=== PATIENT | male | born 1950 | race African-American/Black ===

== ENCOUNTER 2021-06-03 11:06 | Inpatient (IN) | payer OTHER, MEDICARE ==
[2021-06-03] VITALS (257 sets, daily range): BP systolic 88–204; BP diastolic 35–98; PULSE 48–54; TEMP 92.7–99; O2SAT 59–100
[~2021-06-03] VITALS: Ht 157.5 cm; Wt 80.9 kg
[2021-06-03 11:22] LABS: HEMATOCRIT 40.5 % (42.0-52.0); HEMOGLOBIN 12.1 g/dl (13.5-18.0); MEAN CELL VOLUME 103 fl (80.0-100.0); MEAN CORPUSCULAR HEMOGLOBIN 31 pg (27-31); MEAN CORPUSCULAR HGB CONC 30 g/dl (33.0-37.0); PLATELET COUNT 125 K/mm3 (130-400); RED BLOOD COUNT 3.93 M/mm3 (4.20-5.60); REDCELL DISTRIBUTION WIDTH-CV 19.3 % (11.5-14.5)
[2021-06-03 11:34] LABS: BAND 4 % (0-10); LYMPHOCYTE 48 % (20.0-51.0); NEUTROPHILS 43 % (42.0-75.2); NUCLEATED RED BLOOD CELL 3 (0-6)
[2021-06-03 11:35] LABS: ANISOCYTOSIS 2+; HYPOCHROMIA 3+; PLATELET ESTIMATE DECREASED (NORMAL)
[2021-06-03 11:39] LABS: ALBUMIN 3.5 gm/dL (3.4-4.8); BILIRUBIN,TOTAL 2.1 mg/dL (0.2-1.2); C-REACTIVE PROTEIN 0.07 mg/dL (0.00-0.50); CALCIUM 8.1 mg/dL (8.4-10.2); CREATININE, serum 1.08 mg/dL (0.72-1.25); POTASSIUM 4.5 mmol/L (3.5-4.5); TOTAL PROTEIN 6.8 gm/dL (6.2-8.1)
[2021-06-03 11:44] LABS: TROPONIN-I 0.026 ng/mL (0.00-0.033)
[2021-06-03 12:17] LABS: COLLECTION METHOD CLEAN CATCH
[2021-06-03 12:25] LABS: MUCOUS Present (NOT PRESENT); PH 6 (5-8); SQUAMOUS EPITHELIAL None Seen /hpf (0-10); URINE APPEARANCE Clear (CLEAR/HAZY); URINE BACTERIA None Seen /hpf (NONE SEEN); URINE BILIRUBIN Negative (NEGATIVE); URINE BLOOD 2+ (NEGATIVE); URINE COLOR Straw (YELLOW); URINE GLUCOSE 1+ (NEGATIVE); URINE KETONE Trace (NEGATIVE); URINE LEUKOCYTE ESTERASE Negative (NEGATIVE); URINE NITRATE Negative (NEGATIVE); URINE PROTEIN(semi-quant) 2+ (NEGATIVE); URINE UROBILINOGEN Negative (NEGATIVE)
[2021-06-03 12:27] LABS: ARTERIAL BLD GAS O2 SATURATION 96.1 % (92-100); ARTERIAL BLD GAS TCO2 CT 16.5; ARTERIAL BLOOD GAS BASE EXCESS -13.8 (-2-2); ARTERIAL BLOOD GAS HCO3 15.1 meq/L (22-26); ARTERIAL BLOOD GAS PCO2 46.4 mmHg (35-45); ARTERIAL BLOOD GAS PO2 101.2 mmHg (80-100)
[2021-06-03 12:28] LABS: ARTERIAL BLOOD GAS pH 7.13 (7.35-7.45)
--- NOTE | 2021-06-03 12:47 | NUR ---
Patient's emergency contact Chanda Burris [phone] calls ICU stating that she received a call about the patient. She is not related to the patient, but states that she is a close friend & "local" personal carer. Minimal update provided about patient & plan of care. Patient currently in ED with room assigned in ICU. Chanda confirmed that patient recently changed from [facility] to [facility] in [place] & he see a [facility] physician. She was unable to share medical history. Stated that she knew patient had a daughter in [place], but that she was not aware of their relationship & that he did not have much contact with her. Patient has a brother Jo Princess [phone]. Explained that we will attempt to contact Jo in order to get daughter's contact information. Chanda understood that she would not be able to make deicions about patient since there is next of kin. This RN left message with Deepakcarlito's phone number provided.
--- NOTE | 2021-06-03 14:04 | NUR ---
Vibration Analyst responded to code in ED for patient who arrived from a new patient appointment with Genetic Counsellor, Dr. Mojica. JEEVAN contacted Dr. Mojica's office to attempt to locate next of kin. SW was advised that patient came in via [facility] bus and has no emergency contact listed as he is a new patient. Dr. Mojica's office advised that patient recently moved to [place] from [place] and sees a provider at the [facility]. SW contacted the [facility] and was advised patient "declined to provide" emergency contact information and they had no advance directives on file for patient. The [facility] also had no information about patient's previous VA provider in [place]. SW contacted [employer] and was advised that patient is a resident of [facility] in . SW and EMT located a contact card for Walker with management at [facility] in patient's wallet. SW contacted Walker (ph#[phone]) who advised they only wagon driver salesperson they had listed was a friend, Chanda Burris (ph#[phone]). SW attempted to contact this number multiple times and a voicemail was not set up. SW contacted [place] [employer] and requested an office locate Chanda Burris and have her reach out to SW. Chanda contacted SW and advised that she is a "caregiver" for patient and his long time friend. Chanda provided contact information for Joshawna Princess (ph#[phone]), patient's brother. SW contacted Camilo who advised Chanda updated him that patient was in the hospital. Camilo advised patient is not and has one daughter, Madelyn who is estranged from patient. Camilo advised he would try to locate Madelyn. JEEVAN then received a phone call from Claudette Sánchez (ph#[phone]), patient's sister who advised patient "put her in charge" of everything for him. JEEVAN inquired about a DPOA-HC and Hiro Viera said she thought patient had maybe done one designating her but she did not have a copy. JEEVAN explained to Hiro Viera that Madelyn is patient's next of kin and would need to be contacted. Hiro Viera advised they have no way to contact Madelyn and that Madelyn has nothing to do with patient or patient's side of the family. SW provided contact information for family to Katerina CONLEY.
[2021-06-03 14:51] LABS: PROTHROMBIN TIME 11.4 SECONDS (9.7-12.8)
[2021-06-03 14:53] LABS: PARTIAL THROMBOPLASTIN TIME 25.9 SECONDS (26.0-37.0)
[2021-06-03 14:55] LABS: ARTERIAL BLD GAS TCO2 CT 17.7; ARTERIAL BLOOD GAS BASE EXCESS -7.9 (-2-2); ARTERIAL BLOOD GAS HCO3 16.8 meq/L (22-26); ARTERIAL BLOOD GAS PCO2 31.7 mmHg (35-45); ARTERIAL BLOOD GAS pH 7.34 (7.35-7.45)
[2021-06-03 15:08] LABS: PHOSPHOROUS 4.3 mg/dL (2.3-4.7)
--- NOTE | 2021-06-03 15:10 | NUR ---
ALONSO SAAVEDRA NOTIFIED OF CRITICAL LABS. STATES SHE WILL REVIEW.
[2021-06-03 15:13] LABS: D-DIMER > 5250.00 ng/mLDDu (200-230)
--- NOTE | 2021-06-03 15:25 | NUR ---
HYPOTHERMIA PROTOCOL STARTED.
--- NOTE | 2021-06-03 15:39 | NUR ---
Electronic Transaction Implementer was contacted by patient's daughter, Madelyn Burks (ph#[phone]). Madelyn advised that she will be leaving for [place] from [place] soon and wants nursing to let patient know she is on her way. JEEVAN explained to Madelyn that she is patient's legal next of kin and decision maker. Madelyn is tearful and verbalized understanding. SW updated patient's RN.
[2021-06-03 16:35] LABS: FIBRINOGEN 234 mg/dL (200-450)
--- NOTE | 2021-06-03 16:44 | NUR ---
1340-PT ARRIVED FROM ER, INTUBATED, ON PROPOFOL, FENTYL, AND EPI DRIP. BESIDE. ANESTHESIA CALLED FOR ARTLINE AND ET TUBE EXCHANGE. ET TUBE CHANGED, ART LINE TO RIGHT RADIAL PLACED, OG PLACED, RECTAL TEMP PROB PLACE, HYPOTHERMIA PROTOCOL STARTED. 1415-BPS IN THE 200'S ON ARTLINE. DR. WHITTEN BEDSIDE AND NOTIFIED. EPI DRIP STOPPED. 1504-PT TAKEN TO CT. 1525-PT BACK FROM CT. 1600- CVP MEASURED AT 16. SEDATION STOPPED AND PT DOES NOT RESPOND TO VOICE, PUPILS ARE FIXED AND DIALATED. PT INTERMITTENTLY JERKS AND EYES POP OPEN. PT POSTURES IN TOWARDS HIMSELF. 1645- BEDSIDE FOR EVALUATION.
--- NOTE | 2021-06-03 16:55 | NUR ---
[facility]3] referral number [id number]. Please call [facility] with plan of care changes or patient loses all reflexes.
--- NOTE | 2021-06-03 17:41 | NUR ---
PT OVERBREATHING THE VENT. SEDATION INCREASED.
--- NOTE | 2021-06-03 17:52 | NUR ---
PT BELONGINGS- A PAIR OF SLIPPERS, SHIRT, SWEATPANTS, CELLPHONE, AND VA ID. IN PATIENT BELONGING BAG IN ROOM WITH PT LABEL ON THEM.
--- NOTE | 2021-06-03 18:06 | NUR ---
PT HR DOWN TO 48, PREVIOUSLY SR IN THE 60'S. HUMAIRA SAAVEDRA NOTIFIED, AND SEDATION DECREASED. WILL CONTINUE TO MONITOR.
[2021-06-03 19:09] LABS: CALCIUM 7.6 mg/dL (8.4-10.2); CREATININE, serum 1.02 mg/dL (0.72-1.25); MAGNESIUM 1.3 mg/dL (1.6-2.6); POTASSIUM 3.6 mmol/L (3.5-4.5)
--- NOTE | 2021-06-03 20:08 | NUR ---
Assessment complete and charted. Adina SAAVEDRA notified of changes with pupils. In room to see patient.
[2021-06-03 20:09] LABS: ARTERIAL BLD GAS O2 SATURATION 99.4 % (92-100); ARTERIAL BLD GAS TCO2 CT 15.3; ARTERIAL BLOOD GAS BASE EXCESS -8.8 (-2-2); ARTERIAL BLOOD GAS HCO3 14.6 meq/L (22-26); ARTERIAL BLOOD GAS PCO2 24.5 mmHg (35-45); ARTERIAL BLOOD GAS pH 7.39 (7.35-7.45)
[2021-06-03 20:46] LABS: INR 1.1 (0.8-3.0); PROTHROMBIN TIME 12.3 SECONDS (9.7-12.8)
[2021-06-03 20:49] LABS: ALBUMIN 3.4 gm/dL (3.4-4.8); BILIRUBIN,TOTAL 2.5 mg/dL (0.2-1.2); CALCIUM 7.7 mg/dL (8.4-10.2); CREATININE, serum 1.01 mg/dL (0.72-1.25); MAGNESIUM 1.3 mg/dL (1.6-2.6); PHOSPHOROUS 3.5 mg/dL (2.3-4.7); POTASSIUM 3.4 mmol/L (3.5-4.5); TOTAL PROTEIN 6.5 gm/dL (6.2-8.1)
[2021-06-03 20:54] LABS: PARTIAL THROMBOPLASTIN TIME 27.7 SECONDS (26.0-37.0)
[2021-06-03 20:59] LABS: TROPONIN-I 0.179 ng/mL (0.00-0.033)
--- NOTE | 2021-06-03 21:20 | NUR ---
Patient has frequent myoclonic jerks present. Adina SAAVEDRA aware and visualized while in room with patient.
[2021-06-03 21:21] LABS: BILIRUBIN,DIRECT 1.1 mg/dL (0.0-0.5)
--- NOTE | 2021-06-03 21:46 | NUR ---
Patient taken to CT from 2037 to 2049. Tolerated well under current sedation.
[2021-06-04] VITALS (315 sets, daily range): BP systolic 115–190; BP diastolic 45–66; PULSE 48–98; TEMP 91.6–98.1; O2SAT 68–100
--- NOTE | 2021-06-04 01:23 | NUR ---
DESATURATING TO 82% ON 50% FIO2. RESPIRATORY NOTIFIED. PATIENT FIO2 INCREASED TO 100% IN MEANTIME
[2021-06-04 02:20] LABS: INR 1.1 (0.8-3.0); PROTHROMBIN TIME 11.8 SECONDS (9.7-12.8)
[2021-06-04 02:23] LABS: PARTIAL THROMBOPLASTIN TIME 28.7 SECONDS (26.0-37.0)
[2021-06-04 02:31] LABS: ALBUMIN 3.4 gm/dL (3.4-4.8); BILIRUBIN,TOTAL 2.4 mg/dL (0.2-1.2); CALCIUM 7.7 mg/dL (8.4-10.2); CREATININE, serum 1.18 mg/dL (0.72-1.25); MAGNESIUM 1.9 mg/dL (1.6-2.6); PHOSPHOROUS 4.3 mg/dL (2.3-4.7); POTASSIUM 4.6 mmol/L (3.5-4.5); TOTAL PROTEIN 6.6 gm/dL (6.2-8.1)
[2021-06-04 02:39] LABS: TROPONIN-I 0.111 ng/mL (0.00-0.033)
[2021-06-04 02:45] LABS: BILIRUBIN,DIRECT 1.1 mg/dL (0.0-0.5)
--- NOTE | 2021-06-04 03:00 | NUR ---
Patient given vecuronium due to over breathing vent and not tolerating vent. Patient tidal volumes decreased and peak pressures increased. All other interventions tried prior to giving vecuronium. After adminstration patient tolerating vent, appropriate tidal volumes and peak pressures.
[2021-06-04 03:48] LABS: ARTERIAL BLD GAS O2 SATURATION 90.1 % (92-100); ARTERIAL BLD GAS TCO2 CT 16.4; ARTERIAL BLOOD GAS BASE EXCESS -10.3 (-2-2); ARTERIAL BLOOD GAS HCO3 15.4 meq/L (22-26); ARTERIAL BLOOD GAS PO2 58.5 mmHg (80-100); ARTERIAL BLOOD GAS pH 7.29 (7.35-7.45)
--- NOTE | 2021-06-04 04:57 | NUR ---
Sedation vacation not preformed due to hypothermic protocol.
[2021-06-04 05:00] LABS: ARTERIAL BLD GAS O2 SATURATION 95.7 % (92-100); ARTERIAL BLD GAS TCO2 CT 17.4; ARTERIAL BLOOD GAS BASE EXCESS -9.1 (-2-2); ARTERIAL BLOOD GAS HCO3 16.4 meq/L (22-26); ARTERIAL BLOOD GAS PCO2 34.3 mmHg (35-45); ARTERIAL BLOOD GAS PO2 75.8 mmHg (80-100)
[2021-06-04 05:27] LABS: HEMOGLOBIN 11.1 g/dl (13.5-18.0); MEAN CORPUSCULAR HEMOGLOBIN 30 pg (27-31); MEAN CORPUSCULAR HGB CONC 32 g/dl (33.0-37.0); MEAN PLATELET VOLUME 11.3 fl (7.4-10.4); PLATELET COUNT 106 K/mm3 (130-400); RED BLOOD COUNT 3.66 M/mm3 (4.20-5.60); REDCELL DISTRIBUTION WIDTH-CV 19.3 % (11.5-14.5)
[2021-06-04 05:50] LABS: HEMATOCRIT 34.8 % (42.0-52.0); MEAN CELL VOLUME 95 fl (80.0-100.0)
[2021-06-04 06:21] LABS: BAND 8 % (0-10); HYPOCHROMIA 1+; LYMPHOCYTE 1 % (20.0-51.0); NEUTROPHILS 91 % (42.0-75.2); NUCLEATED RED BLOOD CELL 1 (0-6)
[2021-06-04 06:22] LABS: TEAR DROP CELLS 1+
[2021-06-04 06:36] LABS: ALBUMIN 3.2 gm/dL (3.4-4.8); BILIRUBIN,TOTAL 2.2 mg/dL (0.2-1.2); CALCIUM 7.9 mg/dL (8.4-10.2); CREATININE, serum 1.07 mg/dL (0.72-1.25); MAGNESIUM 1.7 mg/dL (1.6-2.6); PHOSPHOROUS 3.6 mg/dL (2.3-4.7); POTASSIUM 3.8 mmol/L (3.5-4.5); TOTAL PROTEIN 6.1 gm/dL (6.2-8.1)
--- NOTE | 2021-06-04 07:00 | NUR ---
PT INTUBATED, WITH PROP, FENT, NS, AND BICARB RUNNING. VSS. PT STILL UNDERGOING HYPOTHERMIC PROTOCOL. MARGA RT SETTING UP EEG. WILL CONTIUE TO THUAN.
--- NOTE | 2021-06-04 07:20 | NUR ---
Report given to YAEL Ray
--- NOTE | 2021-06-04 07:30 | NUR ---
PT INTUBATED LESS THAN 24 HOURS AT THIS TIME
--- NOTE | 2021-06-04 07:46 | NUR ---
SEDATION DECREASED FOR EEG TEST.
[2021-06-04 07:47] LABS: PLATELET ESTIMATE DECREASED (NORMAL)
[2021-06-04 08:29] LABS: INR 1.1 (0.8-3.0)
[2021-06-04 08:32] LABS: PARTIAL THROMBOPLASTIN TIME 28.6 SECONDS (26.0-37.0)
--- NOTE | 2021-06-04 08:44 | NUR ---
PT BP ELEVATED WHILE COMPLETING EEG. PT HAS HAVING FREQUENT INTERMITTEN JERKING. SEDATION INCREASED. BEDSIDE. ORDER RECEIVED FROM MAURICIO WELLSED.
[2021-06-04 08:45] LABS: ALBUMIN 3.2 gm/dL (3.4-4.8); BILIRUBIN,TOTAL 2.1 mg/dL (0.2-1.2); CALCIUM 7.5 mg/dL (8.4-10.2); CREATININE, serum 1.18 mg/dL (0.72-1.25); MAGNESIUM 1.6 mg/dL (1.6-2.6); POTASSIUM 3.9 mmol/L (3.5-4.5); TOTAL PROTEIN 6.3 gm/dL (6.2-8.1)
[2021-06-04 09:01] LABS: TROPONIN-I 0.074 ng/mL (0.00-0.033)
--- NOTE | 2021-06-04 09:04 | NUR ---
ADRIÁN ROMAN NOTIFIED OF CRITICAL TROPONIN. ORDER RECEIVED NO NEED TO CALL CRITICAL TROPONINS LONG LEVEL IS DECREASING.
--- NOTE | 2021-06-04 09:31 | NUR ---
PT CHANGED FROM PROPOFOL TO VERSED TO HELP WITH TWITCHING AND JERKING MOVEMENTS, PER .
--- NOTE | 2021-06-04 10:45 | NUR ---
VERSED INCREASED TO HELP WITH PT'S JERKING AND TREMORS.
[2021-06-04 11:05] LABS: ARTERIAL BLD GAS O2 SATURATION 91.2 % (92-100); ARTERIAL BLD GAS TCO2 CT 21.4; ARTERIAL BLOOD GAS BASE EXCESS -7.3 (-2-2); ARTERIAL BLOOD GAS HCO3 19.9 meq/L (22-26); ARTERIAL BLOOD GAS PCO2 47.6 mmHg (35-45); ARTERIAL BLOOD GAS PO2 64.4 mmHg (80-100); ARTERIAL BLOOD GAS pH 7.24 (7.35-7.45)
--- NOTE | 2021-06-04 14:36 | NUR ---
Building Principal made contact with patient's daughter, Madelyn who advised she has two small children, ages 10 and 7. Madelyn advised she is trying to make arrangements with her job in order to leave and plans to leave for [place] on Wednesday. JEEVAN allen RN and Dr. Mojica.
[2021-06-04 14:40] LABS: INR 1.1 (0.8-3.0); PROTHROMBIN TIME 11.9 SECONDS (9.7-12.8)
[2021-06-04 14:43] LABS: PARTIAL THROMBOPLASTIN TIME 28.2 SECONDS (26.0-37.0)
[2021-06-04 14:54] LABS: ALBUMIN 3.1 gm/dL (3.4-4.8); BILIRUBIN,TOTAL 1.9 mg/dL (0.2-1.2); CALCIUM 7.5 mg/dL (8.4-10.2); CREATININE, serum 1.01 mg/dL (0.72-1.25); MAGNESIUM 1.4 mg/dL (1.6-2.6); TOTAL PROTEIN 5.9 gm/dL (6.2-8.1)
--- NOTE | 2021-06-04 15:00 | NUR ---
Pt's daughter Madelyn called to speak with . Informed her was not on the unit, asked if I could relay a messge. Daughter insisted on speaking directly to . Informed her I would let know she would like to speak to him. called and informed.
[2021-06-04 15:02] LABS: TROPONIN-I 0.048 ng/mL (0.00-0.033)
--- NOTE | 2021-06-04 15:25 | NUR ---
RE-WARMING STARTED. WILL CONTINUE TO MONTIOR CLOSELY.
[2021-06-04 16:00] LABS: BILIRUBIN,DIRECT 0.9 mg/dL (0.0-0.5)
--- NOTE | 2021-06-04 16:05 | NUR ---
VERSED INCREASED FOR PT JERKING AND TREMORS.
--- NOTE | 2021-06-04 16:20 | NUR ---
PT HAVING INCREASED JERKS AND TREMORS. PT ALSO HAVING INCREASED PRESSURE ALARMS WITH VENT. SEDATION INCREASED. WILL CONTINUE TO MONITOR.
--- NOTE | 2021-06-04 17:00 | NUR ---
NO SEDATION VACATION AT THIS TIME D/T REWARMING OF PT. PT DOES NOT RESPOND TO VOICE, PT DOES NOT FOLLOW COMMANDS, PT POSTURES INWARD WITH PAIN. PT HAS SLIGHT INTERMITTENT GAG RELEX. WILL CONTINUE TO MONITOR.
[2021-06-04 18:50] LABS: ARTERIAL BLD GAS O2 SATURATION 98.8 % (92-100); ARTERIAL BLD GAS TCO2 CT 21.7; ARTERIAL BLOOD GAS BASE EXCESS -6.1 (-2-2); ARTERIAL BLOOD GAS HCO3 20.3 meq/L (22-26); ARTERIAL BLOOD GAS pH 7.28 (7.35-7.45)
[2021-06-04 18:52] LABS: ARTERIAL BLOOD GAS PO2 137.4 mmHg (80-100)
--- NOTE | 2021-06-04 19:38 | NUR ---
Assessment complete and charted. Patient having frequent myoclonic jerks. Rewarming in process. Remains sedated and intubated.
--- NOTE | 2021-06-04 19:57 | NUR ---
Myoclonic jerking increased in frequency. Spo2 unable to read, readings measuring in 50s when able to read. Respiratory in room. Patient given vecuronium. Readings 100% spo2.
[2021-06-04 20:54] LABS: INR 1.1 (0.8-3.0); PROTHROMBIN TIME 11.7 SECONDS (9.7-12.8)
[2021-06-04 20:56] LABS: PARTIAL THROMBOPLASTIN TIME 26.3 SECONDS (26.0-37.0)
[2021-06-04 21:03] LABS: ALBUMIN 2.9 gm/dL (3.4-4.8); BILIRUBIN,TOTAL 1.8 mg/dL (0.2-1.2); CALCIUM 7.4 mg/dL (8.4-10.2); CREATININE, serum 0.93 mg/dL (0.72-1.25); MAGNESIUM 1.3 mg/dL (1.6-2.6); PHOSPHOROUS 1.7 mg/dL (2.3-4.7); TOTAL PROTEIN 5.4 gm/dL (6.2-8.1)
[2021-06-04 21:07] LABS: POTASSIUM 2.8 mmol/L (3.5-4.5)
[2021-06-04 21:13] LABS: TROPONIN-I 0.045 ng/mL (0.00-0.033)
[2021-06-04 21:24] LABS: BILIRUBIN,DIRECT 0.8 mg/dL (0.0-0.5)
[2021-06-04 21:35] LABS: ARTERIAL BLD GAS O2 SATURATION 98.3 % (92-100); ARTERIAL BLOOD GAS BASE EXCESS -1.1 (-2-2); ARTERIAL BLOOD GAS PCO2 31.3 mmHg (35-45); ARTERIAL BLOOD GAS PO2 99.8 mmHg (80-100); ARTERIAL BLOOD GAS pH 7.47 (7.35-7.45)
[2021-06-04 21:53] LABS: CALCIUM 7.4 mg/dL (8.4-10.2)
[2021-06-04 21:58] LABS: POTASSIUM 2.9 mmol/L (3.5-4.5)
[2021-06-04 22:41] LABS: CREATININE, serum 0.91 mg/dL (0.72-1.25)
--- NOTE | 2021-06-04 23:16 | NUR ---
Patient had reached goal warming temp of 98.6
--- NOTE | 2021-06-04 23:30 | NUR ---
PER DR. STEWART GIVE ANOTHER 2MG ATIVAN IV. GET CEREBREX STARTED AND IF NOT RESOLUTION OF SYMTPOMS IN 30 MINS CALL BACK AND WILL ATTEMPT VIMPAT
[2021-06-05] VITALS (334 sets, daily range): BP systolic 77–137; BP diastolic 36–68; PULSE 75–99; TEMP 96.6–99.9; O2SAT 35–100
[2021-06-05 02:46] LABS: INR 1.1 (0.8-3.0); PROTHROMBIN TIME 12.3 SECONDS (9.7-12.8)
[2021-06-05 02:48] LABS: PARTIAL THROMBOPLASTIN TIME 25.3 SECONDS (26.0-37.0)
[2021-06-05 03:01] LABS: ALBUMIN 2.8 gm/dL (3.4-4.8); BILIRUBIN,TOTAL 1.7 mg/dL (0.2-1.2); CALCIUM 7.4 mg/dL (8.4-10.2); CREATININE, serum 0.9 mg/dL (0.72-1.25); MAGNESIUM 1.7 mg/dL (1.6-2.6); PHOSPHOROUS 2.2 mg/dL (2.3-4.7); POTASSIUM 3.5 mmol/L (3.5-4.5); TOTAL PROTEIN 5.2 gm/dL (6.2-8.1)
[2021-06-05 03:13] LABS: TROPONIN-I 0.055 ng/mL (0.00-0.033)
[2021-06-05 04:00] LABS: BILIRUBIN,DIRECT 0.8 mg/dL (0.0-0.5)
[2021-06-05 04:56] LABS: ARTERIAL BLD GAS O2 SATURATION 98.8 % (92-100); ARTERIAL BLD GAS TCO2 CT 21.3; ARTERIAL BLOOD GAS HCO3 20.3 meq/L (22-26); ARTERIAL BLOOD GAS PCO2 33.7 mmHg (35-45)
[2021-06-05 04:57] LABS: ARTERIAL BLOOD GAS PO2 133.3 mmHg (80-100)
[2021-06-05 06:09] LABS: MEAN CELL VOLUME 93 fl (80.0-100.0); MEAN CORPUSCULAR HGB CONC 33 g/dl (33.0-37.0); MEAN PLATELET VOLUME 10.9 fl (7.4-10.4); PLATELET COUNT 99 K/mm3 (130-400); RED BLOOD COUNT 2.97 M/mm3 (4.20-5.60); REDCELL DISTRIBUTION WIDTH-CV 19.1 % (11.5-14.5)
[2021-06-05 06:11] LABS: HEMATOCRIT 27.7 % (42.0-52.0); HEMOGLOBIN 9.1 g/dl (13.5-18.0); MEAN CORPUSCULAR HEMOGLOBIN 31 pg (27-31)
[2021-06-05 06:19] LABS: ALBUMIN 2.7 gm/dL (3.4-4.8); BILIRUBIN,TOTAL 1.7 mg/dL (0.2-1.2); CALCIUM 7.2 mg/dL (8.4-10.2); CREATININE, serum 0.9 mg/dL (0.72-1.25); MAGNESIUM 2.5 mg/dL (1.6-2.6); PHOSPHOROUS 2.3 mg/dL (2.3-4.7); POTASSIUM 4.6 mmol/L (3.5-4.5); TOTAL PROTEIN 5.1 gm/dL (6.2-8.1)
[2021-06-05 06:28] LABS: ARTERIAL BLD GAS O2 SATURATION 96.2 % (92-100); ARTERIAL BLD GAS TCO2 CT 22.1; ARTERIAL BLOOD GAS BASE EXCESS -5.1 (-2-2); ARTERIAL BLOOD GAS HCO3 20.8 meq/L (22-26); ARTERIAL BLOOD GAS PCO2 42.2 mmHg (35-45); ARTERIAL BLOOD GAS PO2 88.5 mmHg (80-100); ARTERIAL BLOOD GAS pH 7.31 (7.35-7.45)
[2021-06-05 06:54] LABS: ANISOCYTOSIS 2+; BAND 12 % (0-10); LYMPHOCYTE 3 % (20.0-51.0); NEUTROPHILS 82 % (42.0-75.2); NUCLEATED RED BLOOD CELL 2 (0-6); PLATELET ESTIMATE NORMAL (NORMAL)
[2021-06-05 06:55] LABS: HYPOCHROMIA 3+
--- NOTE | 2021-06-05 07:00 | NUR ---
Pt is intubated and rewarmed. Pt appear to be having continous seizure like motions. Pt having high peak pressures on the vent. Ekg montioring is showing alot of artifact and artline difficult to read d/t tremors. Will continue to montior closely. 0800- bedside to evaluate.
--- NOTE | 2021-06-05 07:14 | NUR ---
REPORT GIVEN TO YAEL IYER
--- NOTE | 2021-06-05 08:16 | NUR ---
Versed adjusted to help with seizure/tremors. Levophed adjusted per artline blood pressures.
--- NOTE | 2021-06-05 08:18 | NUR ---
PT NOT APPLICABLE FOR WEANING AT THIS TIME
--- NOTE | 2021-06-05 10:02 | NUR ---
LEVO TITRATED FOR ARTLINE BP. PROPOFOL ADDED AND INCREASED TO HELP WITH SEDATION AND TREMORS/JERKING.
--- NOTE | 2021-06-05 11:02 | NUR ---
CALLING DAUGHTER HEATHER WITH UPDATES.
[2021-06-05 13:19] LABS: ARTERIAL BLD GAS O2 SATURATION 99.3 % (92-100); ARTERIAL BLD GAS TCO2 CT 20.4; ARTERIAL BLOOD GAS HCO3 19.8 meq/L (22-26); ARTERIAL BLOOD GAS PCO2 21.7 mmHg (35-45); ARTERIAL BLOOD GAS PO2 156.7 mmHg (80-100); ARTERIAL BLOOD GAS pH 7.58 (7.35-7.45)
--- NOTE | 2021-06-05 13:46 | NUR ---
Initial visit; Patient visually unaware that Mophead Sewer offered prayer for him.
--- NOTE | 2021-06-05 14:04 | NUR ---
[facility]G RESULTS CALLED TO BY RT. ORDERS RECEIVED TO CHANGE VENT SETTINGS AND DC BICARB DRIP.
--- NOTE | 2021-06-05 15:18 | NUR ---
RT NOT AVAIL AT THIS TIME
--- NOTE | 2021-06-05 16:49 | NUR ---
SEDATION VACATION DONE EARLIER IN THE SHIFT FOR NEURO ASSESSMENT. PT DOES NOT RESPOND TO VOICE OR PAIN. PT DOES NOT FOLLOW COMMANDS. PT DOES NOT HAVE A GAG OR CORNEA REFLEX. PT'S PUPILS UNEQUAL AND NON REACTIVE. PT'S CLONIC JERKS, TREMORS, BP, AND PEAK PRESSURES INCREASE WHEN SEDATION IS DECREASED. WILL CONTINUE TO MONITOR.
[2021-06-05 21:24] LABS: ARTERIAL BLD GAS O2 SATURATION 98.3 % (92-100); ARTERIAL BLD GAS TCO2 CT 23.3; ARTERIAL BLOOD GAS BASE EXCESS -0.9 (-2-2); ARTERIAL BLOOD GAS HCO3 22.3 meq/L (22-26); ARTERIAL BLOOD GAS PCO2 31.7 mmHg (35-45); ARTERIAL BLOOD GAS PO2 115.3 mmHg (80-100); ARTERIAL BLOOD GAS pH 7.47 (7.35-7.45)
[2021-06-06] VITALS (576 sets, daily range): BP systolic 116–156; BP diastolic 57–83; PULSE 77–89; TEMP 98.2–99; O2SAT 79–100
[2021-06-06 03:39] LABS: ARTERIAL BLD GAS TCO2 CT 22.9; ARTERIAL BLOOD GAS BASE EXCESS -0.6 (-2-2); ARTERIAL BLOOD GAS PCO2 29.2 mmHg (35-45); ARTERIAL BLOOD GAS PO2 67.4 mmHg (80-100)
[2021-06-06 05:23] LABS: MEAN CELL VOLUME 93 fl (80.0-100.0); MEAN CORPUSCULAR HGB CONC 33 g/dl (33.0-37.0); MEAN PLATELET VOLUME 11.4 fl (7.4-10.4); PLATELET COUNT 118 K/mm3 (130-400); RED BLOOD COUNT 3.04 M/mm3 (4.20-5.60); REDCELL DISTRIBUTION WIDTH-CV 20.2 % (11.5-14.5)
[2021-06-06 05:30] LABS: HEMATOCRIT 28.2 % (42.0-52.0); HEMOGLOBIN 9.3 g/dl (13.5-18.0); MEAN CORPUSCULAR HEMOGLOBIN 31 pg (27-31)
[2021-06-06 05:37] LABS: ALBUMIN 2.6 gm/dL (3.4-4.8); BILIRUBIN,TOTAL 1.1 mg/dL (0.2-1.2); CALCIUM 7.8 mg/dL (8.4-10.2); CREATININE, serum 0.9 mg/dL (0.72-1.25); PHOSPHOROUS 1.6 mg/dL (2.3-4.7); POTASSIUM 3.3 mmol/L (3.5-4.5); TOTAL PROTEIN 5.1 gm/dL (6.2-8.1)
--- NOTE | 2021-06-06 05:39 | NUR ---
PAUSED SEDATION TO DRAW AM LABS AND PERFORM 0500 ASSESSMENTS. DURING THIS TIME MYOCLONIC MOVEMENTS AND HR INCREASED. SEDATION RESUMED AT PREVIOUS RATES.
[2021-06-06 05:57] LABS: BAND 4 % (0-10); LYMPHOCYTE 6 % (20.0-51.0); NEUTROPHILS 88 % (42.0-75.2); SCHISTOCYTES 1+; TARGET CELLS 1+
[2021-06-06 05:59] LABS: POIKILOCYTOSIS 2+
--- NOTE | 2021-06-06 13:50 | NUR ---
Produce Laborer was notified that patient's electric scooter was located at [facility] to be picked up. SW contacted patient's daughter, Madelyn to notify her. Madelyn advised they are on their way and should be here in a few hours. JEEVAN notified RN, Cirilo and also provided contact information for [facility] to provide to the family in case SW is not here when family arrives.
--- NOTE | 2021-06-06 18:30 | NUR ---
YAEL Armas Director informed staff that pt's visiting regulations remain in place (2 visitors selected per day - 8am-8pm). YAEL Arizadyer helper and myself discussed these regulations with pt's family. Family quite upset and do not agree with policy.
[2021-06-07] VITALS (602 sets, daily range): BP systolic 102–154; BP diastolic 56–75; PULSE 68–117; TEMP 98.2–99.6; O2SAT 76–100
[2021-06-07 05:33] LABS: ARTERIAL BLD GAS O2 SATURATION 99.7 % (92-100); ARTERIAL BLD GAS TCO2 CT 24.5; ARTERIAL BLOOD GAS HCO3 23.3 meq/L (22-26); ARTERIAL BLOOD GAS PCO2 37.4 mmHg (35-45); ARTERIAL BLOOD GAS pH 7.41 (7.35-7.45)
[2021-06-07 05:35] LABS: ARTERIAL BLOOD GAS PO2 219.1 mmHg (80-100)
[2021-06-07 05:38] LABS: MEAN CELL VOLUME 97 fl (80.0-100.0); MEAN CORPUSCULAR HGB CONC 31 g/dl (33.0-37.0); MEAN PLATELET VOLUME 11.2 fl (7.4-10.4); PLATELET COUNT 143 K/mm3 (130-400); RED BLOOD COUNT 3.22 M/mm3 (4.20-5.60); REDCELL DISTRIBUTION WIDTH-CV 21.5 % (11.5-14.5)
[2021-06-07 05:45] LABS: HEMATOCRIT 31.3 % (42.0-52.0); HEMOGLOBIN 9.8 g/dl (13.5-18.0); MEAN CORPUSCULAR HEMOGLOBIN 30 pg (27-31)
[2021-06-07 05:52] LABS: ALBUMIN 2.4 gm/dL (3.4-4.8); CREATININE, serum 0.78 mg/dL (0.72-1.25); MAGNESIUM 1.9 mg/dL (1.6-2.6); PHOSPHOROUS 2.2 mg/dL (2.3-4.7); POTASSIUM 4.4 mmol/L (3.5-4.5)
[2021-06-07 06:27] LABS: BAND 6 % (0-10); LYMPHOCYTE 6 % (20.0-51.0); NEUTROPHILS 85 % (42.0-75.2); NUCLEATED RED BLOOD CELL 1 (0-6); PLATELET ESTIMATE NORMAL (NORMAL)
[2021-06-07 06:28] LABS: ANISOCYTOSIS 2+; HYPOCHROMIA 2+
--- NOTE | 2021-06-07 20:01 | NUR ---
Sedation vacation not performed today; patient had seizure activity this afternoon and this nurse did not feel comfortable decreasing sedation.
--- NOTE | 2021-06-07 20:14 | NUR ---
Patient's family (daughter and two sisters) visited today. Daughter, Madelyn, is the point of contact and unless others were present in the room, this nurse only gave information to Madelyn. Dr. Emerson rounded today and spoke at length with the family, showing them EEGs and patient's lack of reflexes at the bedside. Family is aware of the increased seizure activity.
[2021-06-08] VITALS (717 sets, daily range): BP systolic 98–138; BP diastolic 57–75; PULSE 72–125; TEMP 98.3–101; O2SAT 42–100
[2021-06-08 04:43] LABS: HEMOGLOBIN 10.2 g/dl (13.5-18.0); MEAN CELL VOLUME 99 fl (80.0-100.0); MEAN CORPUSCULAR HEMOGLOBIN 30 pg (27-31); MEAN CORPUSCULAR HGB CONC 31 g/dl (33.0-37.0); MEAN PLATELET VOLUME 10.9 fl (7.4-10.4); PLATELET COUNT 152 K/mm3 (130-400); RED BLOOD COUNT 3.36 M/mm3 (4.20-5.60); REDCELL DISTRIBUTION WIDTH-CV 21.6 % (11.5-14.5)
[2021-06-08 04:50] LABS: HEMATOCRIT 33.4 % (42.0-52.0)
[2021-06-08 05:01] LABS: ALBUMIN 2.5 gm/dL (3.4-4.8); CREATININE, serum 0.88 mg/dL (0.72-1.25); PHOSPHOROUS 3.3 mg/dL (2.3-4.7); POTASSIUM 5.3 mmol/L (3.5-4.5)
--- NOTE | 2021-06-08 05:13 | NUR ---
SEDATION VACATION 1412-1715 SEDATION STOPPED TO ATTEMPT TO WAKEN PATIENT. PATIENT MADE NO PURPOSEFUL MOVEMENTS, HAD NO INCREASE IN REFLEXES, AND ONLY EXHIBITED AN INCREASE IN MYOCLONIC JERKS. PATIENT BECAME TACHYCARDIC AND 02 SATURATION DECREASED. SEDATION RESTARTED AT PREVIOUS RATE
[2021-06-08 05:36] LABS: ANISOCYTOSIS 2+; BAND 1 % (0-10); BASOPHIL 1 % (0-2); EOSINOPHIL 1 % (0-4); HYPOCHROMIA 3+; LYMPHOCYTE 9 % (20.0-51.0); METAMYELOCYTE 2 % (0-0); NEUTROPHILS 82 % (42.0-75.2); NUCLEATED RED BLOOD CELL 1 (0-6)
[2021-06-08 05:41] LABS: PLATELET ESTIMATE NORMAL (NORMAL)
[2021-06-08 05:42] LABS: TEAR DROP CELLS 1+
[2021-06-08 05:44] LABS: BURR CELLS 1+
--- NOTE | 2021-06-08 06:32 | NUR ---
ASSUMED CARE OF PATIENT AFTER RECEIVING BEDSIDE REPORT. ASSESSMENT COMPLETED, VSS. PATIENT NOTED TO HAVE ONE SEIZURE RIGHT AFTER SHIFT CHANGE, SEIZURE DOCUMENTED IN PROCESS INTERVENTIONS. MINIMAL MYOCLONIC JERKS NOTED THROUGHOUT THE NIGHT. FAMILY UPDATED AND PASSCODE POLICY REINFORCED. ART LINE REMOVED PER HUMAIRA PORTILLO. PATIENT CONTINUES TO BE UNABLE TO THERMOREGULATE, COOLING PADS REMAIN IN PLACE, SKIN CHECKED AND INTACT UNDERNEATH. BEDSIDE REPORT TO BE GIVEN TO ONCOMING SHIFT.
--- NOTE | 2021-06-08 07:30 | NUR ---
REPORT RECEIVED FROM YAEL DAVIDSON; PATIENT DID WELL OVERNIGHT AND HAD NO SEIZURE ACTIVITY AFTER HAVING HAD ONE AT SHIFT CHANGE LAST NIGHT. PATIENT'S VITAL SIGNS ARE ALL WITHIN NORMAL LIMITS THIS MORNING.
--- NOTE | 2021-06-08 10:00 | NUR ---
Spoke with Dr. Rogers in regards to increased seizure activity; informed him of Dr. Emerson's changes to his meds. Dr. Rogers had no further advice to help control his seizures; will speak with Dr. Emerson later today.
[2021-06-08 11:50] LABS: ARTERIAL BLD GAS O2 SATURATION 96.3 % (92-100); ARTERIAL BLD GAS TCO2 CT 23.3; ARTERIAL BLOOD GAS BASE EXCESS -4.6 (-2-2); ARTERIAL BLOOD GAS HCO3 21.9 meq/L (22-26); ARTERIAL BLOOD GAS PCO2 46.2 mmHg (35-45); ARTERIAL BLOOD GAS PO2 83.7 mmHg (80-100); ARTERIAL BLOOD GAS pH 7.29 (7.35-7.45)
--- NOTE | 2021-06-08 14:12 | NUR ---
Spoke with Drs. Angel and Sergio; trach/PEG placement is tentatively scheduled for June [address] Hill can go first and Dr. Angel said he would follow. Consent is signed for trach placement; will obtain consent for PEG placement Wednesday when Dr. Angel comes by to see the patient. Daughter Madelyn was the person called this afternoon and she was told to expect a call from Dr. Angel in order to obtain consent for the PEG placement. Madelyn stated that she did not always get cell service in her place of employment, but that we could leave a message and that she would call us back.
--- NOTE | 2021-06-08 15:14 | NUR ---
CALLED AND LEFT MESSAGE WITH MEDICAL LABORATORY TECHNICAL OFFICER IN REGARDS TO TRACH/PEG PLACEMENT, ASKING TO CONFIRM SURGERY FOR JUNE 10 AT 1230; ASKED THEM TO PLEASE CALL ICU, MAVIS AND/OR PETER IF THERE IS A CONFLICT.
--- NOTE | 2021-06-08 15:48 | NUR ---
RECEIVED REPORT FROM YAEL LIM. PATIENT IN BED. UNRESPONSIVE, SEDATED AND INTUBATED. TLC AND [address], ALL PATENT/BLOOD RETURN NOTED. SEE GTT TITRATION FLOWSHEET. TURK CATHETER IN PLACE, PATENT AND FREE OF DEPENDENT LOOPS. VSS.
--- NOTE | 2021-06-08 18:18 | NUR ---
Patient had multiple seizures throughout the day today; each seizure lasted less than one minute in duration. Patient's heart rate would increase as high as 130s and SpO2 would drop, getting as low as 35%. Keppra dose increased to 2000mg BID per Dr. Emerson.
--- NOTE | 2021-06-08 18:24 | NUR ---
Called and spoke with Madelyn today at length about the concerns she and the family have had concerning privacy and the "passcode" we give to families. This nurse discussed the need for a passcode, and explained that there was initially some confusion as to who to contact as the patient came in post-code and was intubated and sedated. Also discussed the trach/PEG procedure and that it is tentatively scheduled for Wednesday at noon, and that because we talked to Dr. Hill on the phone and got consent for the trach, we just need Dr. Angel to go over PEG placement and get consent for that procedure.
[2021-06-08 19:07] LABS: ARTERIAL BLD GAS O2 SATURATION 98.5 % (92-100); ARTERIAL BLD GAS TCO2 CT 22.9; ARTERIAL BLOOD GAS BASE EXCESS -2.8 (-2-2); ARTERIAL BLOOD GAS HCO3 21.8 meq/L (22-26); ARTERIAL BLOOD GAS PCO2 36.6 mmHg (35-45); ARTERIAL BLOOD GAS PO2 112.1 mmHg (80-100); ARTERIAL BLOOD GAS pH 7.39 (7.35-7.45)
[2021-06-09] VITALS (634 sets, daily range): BP systolic 111–1369; BP diastolic 55–73; PULSE 75–114; TEMP 98.9–101.2; O2SAT 48–100
[2021-06-09 04:09] LABS: MEAN CELL VOLUME 99 fl (80.0-100.0); MEAN CORPUSCULAR HGB CONC 31 g/dl (33.0-37.0); MEAN PLATELET VOLUME 11.2 fl (7.4-10.4); PLATELET COUNT 144 K/mm3 (130-400); RED BLOOD COUNT 2.97 M/mm3 (4.20-5.60); REDCELL DISTRIBUTION WIDTH-CV 21.3 % (11.5-14.5)
[2021-06-09 04:15] LABS: HEMATOCRIT 29.4 % (42.0-52.0); HEMOGLOBIN 9.1 g/dl (13.5-18.0); MEAN CORPUSCULAR HEMOGLOBIN 31 pg (27-31)
[2021-06-09 04:28] LABS: ALBUMIN 2.5 gm/dL (3.4-4.8); BILIRUBIN,TOTAL 0.4 mg/dL (0.2-1.2); MAGNESIUM 1.9 mg/dL (1.6-2.6); PHOSPHOROUS 3.4 mg/dL (2.3-4.7); POTASSIUM 5.6 mmol/L (3.5-4.5); TOTAL PROTEIN 5.4 gm/dL (6.2-8.1)
[2021-06-09 04:37] LABS: ANISOCYTOSIS 2+; BAND 2 % (0-10); HYPOCHROMIA 2+; LYMPHOCYTE 2 % (20.0-51.0); METAMYELOCYTE 2 % (0-0); NEUTROPHILS 93 % (42.0-75.2); NUCLEATED RED BLOOD CELL 1 (0-6); PLATELET ESTIMATE NORMAL (NORMAL)
[2021-06-09 04:38] LABS: SCHISTOCYTES 1+
[2021-06-09 05:01] LABS: ARTERIAL BLD GAS O2 SATURATION 98.6 % (92-100); ARTERIAL BLD GAS TCO2 CT 24.4; ARTERIAL BLOOD GAS BASE EXCESS -0.7 (-2-2); ARTERIAL BLOOD GAS HCO3 23.3 meq/L (22-26); ARTERIAL BLOOD GAS PCO2 35.7 mmHg (35-45); ARTERIAL BLOOD GAS pH 7.43 (7.35-7.45)
[2021-06-09 05:02] LABS: ARTERIAL BLOOD GAS PO2 121.4 mmHg (80-100)
--- NOTE | 2021-06-09 05:31 | NUR ---
SEDATION VACATION ATTEMPTED. PATIENT BECAME TACHYCARDIC AND 02 SATURATION DROPPED TO 65%. SEDATION VACATION STARTED AT 0512 AND ENDED AT 0528.
--- NOTE | 2021-06-09 05:45 | NUR ---
ASSUMED CARE OF PATIENT AFTER RECEIVING BEDSIDE REPORT. PATIENT EXHIBITING JERKING MOTION BUT WAS NOT RHYTHMIC. SEIZURE ACTIVITY NOTED AT 2251, LASTED ONE MINUTE. VITAL SIGNS OTHERWISE STABLE THROUGHOUT SHIFT. PATIENT ABLE TO HAVE VENT SETTINGS TURNED DOWN FOLLOWING ABG PER RT. NO UPDATE GIVEN TO FAMILY. BEDSIDE SHIFT REPORT TO BE GIVEN TO ONCMING SHIFT.
--- NOTE | 2021-06-09 07:00 | NUR ---
PT INTUBATED AND SEDATED. PT ON GAMAR FOR TEMPATURE CONTROL. PT'S VSS. PT STILL HAVING SLIGHT TREMORS. WILL CONITNUE TO MONITOR.
[2021-06-09 09:51] LABS: COLLECTION METHOD CLEAN CATCH
[2021-06-09 10:03] LABS: PH 7 (5-8); SQUAMOUS EPITHELIAL None Seen /hpf (0-10); URINE APPEARANCE Clear (CLEAR/HAZY); URINE BACTERIA None Seen /hpf (NONE SEEN); URINE BILIRUBIN Negative (NEGATIVE); URINE BLOOD 2+ (NEGATIVE); URINE COLOR Straw (YELLOW); URINE GLUCOSE Negative (NEGATIVE); URINE KETONE Negative (NEGATIVE); URINE LEUKOCYTE ESTERASE Negative (NEGATIVE); URINE NITRATE Negative (NEGATIVE); URINE PROTEIN(semi-quant) Negative (NEGATIVE); URINE RBC >50 /hpf (0-2); URINE UROBILINOGEN Negative (NEGATIVE)
--- NOTE | 2021-06-09 10:38 | NUR ---
Spoke with Horacio Pharmacist regarding propofol and versed compatibility. He did more research and stated per articles ok to run propofol and versed together.
--- NOTE | 2021-06-09 11:36 | NUR ---
ON UNIT WHEN PT APPEARED TO HAVE INCREASED TREMORS, OR SEIZURE LIKE ACTIVITY. NOTIFIED AND CAME BEDSIDE TO OBSERVE.
--- NOTE | 2021-06-09 12:50 | NUR ---
MESSAGE LEFT WITH STERILE PROCESSING MANAGER REGARDING TRACH/PEG PLACEMENT TOMORROW.
--- NOTE | 2021-06-09 13:38 | NUR ---
Palliative consult has was placed 06/04. I have been following along and discussing case with care team. No direct conversations have taken place with family members. Will provide support if needed and primary nurse aware.
--- NOTE | 2021-06-09 16:50 | NUR ---
WHEN SEDATION DECREASED PT BECOMES HYPERTENSIVE, TACHYCARDIC, AND CLONIC SPAMS INCREASE IN INTENSITY AND DURATION.
--- NOTE | 2021-06-09 17:28 | NUR ---
UNABLE TO DO MRI D/T ONLY BEING ABLE TO RUN ONE IV MEDICATION. PT'S TREMORS AND JERKING INCREASE IN INTENSITY AND FREQUENCY WITH OUT ALL IV MEDICATIONS. NOTIFIED. WILL CONTINUE TO THUAN.
--- NOTE | 2021-06-09 19:14 | NUR ---
SUCTIONED LARGE THICK YELLOW/BARGER OUT OF MOUTH AND SMALL OUT OF ETT
[2021-06-10] VITALS (455 sets, daily range): BP systolic 101–181; BP diastolic 44–126; PULSE 75–109; TEMP 97.8–101.4; O2SAT 56–100
[2021-06-10 04:30] LABS: EOS % 0.1 % (0.0-4.0); GRAN # 6.1 K/mm3 (1.4-6.5); LYMPH # 0.3 K/mm3 (1.2-3.4); LYMPH % 3.7 % (20.0-51.0); MEAN CELL VOLUME 96 fl (80.0-100.0); MEAN CORPUSCULAR HGB CONC 32 g/dl (33.0-37.0); MEAN PLATELET VOLUME 11.4 fl (7.4-10.4); MONO # 0.6 K/mm3 (0.1-0.6); MONO % 8.2 % (1.7-9.3); PLATELET COUNT 150 K/mm3 (130-400); RED BLOOD COUNT 2.81 M/mm3 (4.20-5.60); REDCELL DISTRIBUTION WIDTH-CV 20.9 % (11.5-14.5)
[2021-06-10 04:34] LABS: HEMOGLOBIN 8.6 g/dl (13.5-18.0); MEAN CORPUSCULAR HEMOGLOBIN 31 pg (27-31)
[2021-06-10 04:47] LABS: CALCIUM 7.9 mg/dL (8.4-10.2); CREATININE, serum 0.89 mg/dL (0.72-1.25); POTASSIUM 5.2 mmol/L (3.5-4.5)
[2021-06-10 05:01] LABS: ARTERIAL BLD GAS O2 SATURATION 97.5 % (92-100); ARTERIAL BLD GAS TCO2 CT 23.6; ARTERIAL BLOOD GAS BASE EXCESS -1.5 (-2-2); ARTERIAL BLOOD GAS HCO3 22.5 meq/L (22-26); ARTERIAL BLOOD GAS PCO2 35.3 mmHg (35-45); ARTERIAL BLOOD GAS pH 7.42 (7.35-7.45)
--- NOTE | 2021-06-10 05:35 | NUR ---
NO WEANING TRACH AND PEG TODAY
--- NOTE | 2021-06-10 05:35 | NUR ---
SEDATION VACATION UNABLE TO BE COMPLETED. PRIOR TO STARTING SEDATION VACATION PATIENT WAS HAVING PROFUSE TREMORING FROM BEING TURNED. PATIENT WAS TACHYCARDIC AND HAD DESATURATIONS INTO THE 80'S.
--- NOTE | 2021-06-10 06:40 | NUR ---
ASSUMED CARE OF PATIENT AFTER RECEIVING BEDSIDE REPORT. ASSESSMENT COMPLETED, VSS. PATIENT EXHIBITS TREMOR WHEN ANY CARES ARE GIVEN. NO FAMILY AT BEDSIDE TO UPDATE. PATIENT REMAINS FEBRILE DESPITE EFFORTS WITH COOLING BLANKET. ICE PACKS PLACED UNDER ARMS, BEHIND NECK, AND GROIN. NO CHANGE NOTED IN TEMPERATURE. PATIENT DID NOT TOLERATE SEDATION VACATION. NEURO CHECKS COMPLETED WITHOUT SEDATION, NO IMPROVEMENT IN NEURO FUNCTION. BEDSIDE REPORT TO BE GIVEN TO ONCOMING SHIFT.
--- NOTE | 2021-06-10 07:33 | NUR ---
RECEIVED BEDSIDE SHIFT REPORT FROM YAEL DAVIDSON. PATIENT IS IN BED, STILL SEDATED, INTUBATED AND UNRESPONSIVE. VSS. TURK CATHETER STILL IN PLACE, PATENT, FREE OF DEPENDENT LOOPS AND DRAINING TO GRAVITY. RIGHT UPPER ARM PICC IN PLACE, PATENT WITH GOOD BLOOD RETURN. SEE GTT TITRATION FLOWSHEET. WILL BE HAVING A TRACHEOSTOMY AND PED TUBE PLACEMENT THIS AFTERNOON.
--- NOTE | 2021-06-10 08:15 | NUR ---
DR. LANGSTON AT BEDSIDE. DISCUSSED PLAN FOR PATIENT FOR THE DAY.
--- NOTE | 2021-06-10 10:30 | NUR ---
DR. MOON AT BEDSIDE. DISCUSSED PLAN OF CARE AND INABILITY FOR PATIENT TO MAINTAIN TEMPERATURES AND THEREFORE NEED FOR COOLING BLANKET. QUESTIONS ANSWERED.
--- NOTE | 2021-06-10 13:08 | NUR ---
Capital Equipment Specialist was contacted by patient's daughter, Madelyn who had some concerns and questions about patient. Madelyn advised she had a very difficult weekend and reported that patient's siblings gave her a very hard time. Madelyn advised that patient's siblings questioned why the care team would talk with her and also implied that she was trying to kill her father when she considered not continuing aggressive cares. Madelyn advised she does not feel her father would want to live like this and even though she gave consent, she questions if patient would want trach/peg. Madelyn advised she doesn't think patient would want this but she is trying to remain on good terms with her father's siblings. JEEVAN staffed the above conversation [facility] Tissue Packer and ICU Director. Then SW and ICU Director contacted Madelyn to follow up and offer support for her decision making. Madelyn again advised that she does not feel her dad would want to live like this and that God has called patient home. Madelyn has reservations about trach/peg but wants to proceed at this time as this is what patient's siblings desire. Chanda offered patient support and also offered to assist setting up a family meeting to discuss plan of care futher. Madelyn declined a family meeting as she felt this would just cause futher issues. Madelyn expressed apprecation for support and confirmed she would like to proceed with trach/peg today and will call if she changes her mind.
--- NOTE | 2021-06-10 13:21 | NUR ---
Immigration Case Worker contacted Bharat at [facility] and provided update that patient will receive trach/peg today at 1700. SW to submit for authorization for [facility] tomorrow morning and updated patient's daughter, Madelyn that once trach/peg are placed, the next step is obtaining insurance authorization for [facility]. Madelyn verbalized understanding.
--- NOTE | 2021-06-10 13:30 | NUR ---
SISTER AT BEDSIDE. DISCUSSED PATIENT'S CURRENT STATUS. QUESTIONS ANSWERED.
--- NOTE | 2021-06-10 14:27 | NUR ---
Patient's sister, Nilsa Chandra (ph#[phone]) is at bedside and requested to meet with JEEVAN. Nilsa advised she has been in contact with Madelyn about dischare planning and the possibility of [facility] transfer if insurance would approve. Nilsa advised she lives in [place], so the [place] location would be their preference. JEEVAN advised she would notify Bharat, however patient will have to go to location with bed availability.
[2021-06-10 16:55] LABS: RETIC # 0.05 M/mm3 (0.02-0.16); RETIC % 1.8 % (0.5-3.52)
--- NOTE | 2021-06-10 17:00 | NUR ---
PATIENT SUFFERING FROM SEIZURES AND CONTINUOUS TREMORS. SEDATION VACATION NOT RECOMMENDED FOR THIS PATIENT.
[2021-06-10 17:19] LABS: CREATINE KINASE 138 U/L (30-200); LACTATE DEHYDROGENASE 243 U/L (125-220)
--- NOTE | 2021-06-10 17:43 | NUR ---
CALLED OR DESK TO SEE WHEN PATIENT WAS GOING TO BE TAKEN BACK FOR TRACH AND PEG PLACEMENT. SAID THAT THEY ARE "BACKED UP"
--- NOTE | 2021-06-10 17:54 | NUR ---
SOO FROM SURGERY CALLED TO SAY THEY WILL BE COMING TO GET THE PATIENT IN 5 MINUTES.
--- NOTE | 2021-06-10 18:15 | NUR ---
PATIENT DEPARTED UNIT TO SURGERY.
--- NOTE | 2021-06-10 20:08 | NUR ---
patient returned from OR. propofol, versed, and fentanyl restarted at previous rates
[2021-06-11] VITALS (1211 sets, daily range): BP systolic 101–130; BP diastolic 48–67; PULSE 65–77; TEMP 97.5–99.1; O2SAT 66–100
--- NOTE | 2021-06-11 00:42 | NUR ---
PT RECIEVED FROM OR STAFF NO COMPLICATIONS. PLACED ON VENTILATOR. HAD A 6.0 SHILEY TRACH PLACED AND PEG. RN AT BEDSIDE SEDATION STARTED. MODERATE THICK BLOOD OUT OF TRACH AND MILD BLOOD AROUND TRACH SITE CLEANED AROUND SITE AND GUAZE PLACED.
--- NOTE | 2021-06-11 01:23 | NUR ---
MINIMAL STIMULATION DOING Q4 ORAL CARE
[2021-06-11 03:24] LABS: ARTERIAL BLD GAS O2 SATURATION 96.9 % (92-100); ARTERIAL BLD GAS TCO2 CT 24.1; ARTERIAL BLOOD GAS BASE EXCESS -1.2 (-2-2); ARTERIAL BLOOD GAS PCO2 36.2 mmHg (35-45); ARTERIAL BLOOD GAS PO2 89.9 mmHg (80-100); ARTERIAL BLOOD GAS pH 7.42 (7.35-7.45)
[2021-06-11 04:24] LABS: BASO % 0.1 % (0.0-2.0); GRAN # 6.4 K/mm3 (1.4-6.5); GRAN % 86.9 % (42.2-75.2); LYMPH # 0.4 K/mm3 (1.2-3.4); LYMPH % 4.7 % (20.0-51.0); MEAN CELL VOLUME 99 fl (80.0-100.0); MEAN CORPUSCULAR HGB CONC 31 g/dl (33.0-37.0); MEAN PLATELET VOLUME 11.2 fl (7.4-10.4); MONO # 0.6 K/mm3 (0.1-0.6); MONO % 7.8 % (1.7-9.3); PLATELET COUNT 161 K/mm3 (130-400); RED BLOOD COUNT 2.59 M/mm3 (4.20-5.60); REDCELL DISTRIBUTION WIDTH-CV 20.5 % (11.5-14.5)
[2021-06-11 04:33] LABS: HEMATOCRIT 25.6 % (42.0-52.0); HEMOGLOBIN 7.9 g/dl (13.5-18.0); MEAN CORPUSCULAR HEMOGLOBIN 31 pg (27-31)
[2021-06-11 04:41] LABS: BLOOD UREA NITROGEN 20 mg/dL (8-26); CALCIUM 8.1 mg/dL (8.4-10.2); CHLORIDE 111 mmol/L (98-107); CREATININE, serum 0.72 mg/dL (0.72-1.25); GLUCOSE 128 mg/dL (70-99); MAGNESIUM 1.8 mg/dL (1.6-2.6); POTASSIUM 4.4 mmol/L (3.5-4.5); SODIUM 140 mmol/L (136-145)
[2021-06-11 04:43] LABS: CARBON DIOXIDE 22 mmol/L (23-31)
--- NOTE | 2021-06-11 05:28 | NUR ---
NO WEANING ON SEDATION
--- NOTE | 2021-06-11 06:27 | NUR ---
PATIENT'S SEDATION NOT CUT IN HALF. NOT APPROPRIATE AT THIS TIME. PATIENT NOT SYNCING WITH VENTILATOR WHEN SEDATION DECREASED. FREQUENT MYOCLONIC JERKS.
--- NOTE | 2021-06-11 08:00 | NUR ---
Resumed care of PT. All lines, tubes, GTTs, pumps checked and verified. PT is unresponsive with no signs of higher brain function. PT still continues to have myoclonic jerking. PT blood pressure is soft 80s/40s MAP mid to high 50s. Physician notified. Will continue to monitor trends
--- NOTE | 2021-06-11 09:22 | NUR ---
Per Dr. Angel, PEG is ok to use for medication, but nutrition not until 1700 06/11/21.
--- NOTE | 2021-06-11 10:00 | NUR ---
PT is starting to have high pressures 230/180s. Physician notified of change.
--- NOTE | 2021-06-11 12:00 | NUR ---
PTs blood pressure trending down to normal ranges.
--- NOTE | 2021-06-11 13:15 | NUR ---
PT sister is bedside. All questions answered to the best ability of this nurse.
--- NOTE | 2021-06-11 13:22 | NUR ---
Car Pick Up Driver contacted the [facility] Community Care Team (ph#[phone]) and faxed clinicals to their referral fax#[phone] to request auth for LTACH ([facility]). JEEVAN also completed Request for Services form and included this in auth request. JEEVAN updated Bharat at [facility].
--- NOTE | 2021-06-11 13:55 | NUR ---
PT HAVING SEIZURE ACTIVITY. PULSE RATE INTO 120S, EYES HAVE OPENED AND ROLLED UPWARDS. PUPILS STILL UNEQUAL AND NON REACTIVE. PT TEMPERATURE HAS INCREASED TO 99.0 AND BLOOD PRESSURE TRENDING BACK UP, CURRENTLY 150S/50S.
--- NOTE | 2021-06-11 15:53 | NUR ---
[facility] DR.Shulzhenko BARNEY consulted with this nurse about the myoclonic jerks. The Dr. Saenz suggested 2 mg IV push now. Will continue to monitor.
--- NOTE | 2021-06-11 17:49 | NUR ---
Started tube feed per orders.
--- NOTE | 2021-06-11 19:22 | NUR ---
SXN MODERATE THICK DARK BLOODY SECRETIONS.
--- NOTE | 2021-06-11 22:49 | NUR ---
2223- PT HAVING WITNESSED SEIZURE AT THIS TIME. HR IN LOW 100S AND SPO2 DROPPING INTO 60S. GAVE PRN 2MG IV PUSH ATIVAN. AFTER ROUGHLY 1 MIN PT STOPPED SEIZING. BP DROPPED TO 63/42 AFTER DOSE OF ATIVAN, ALL OTHER VSS. WILL CONTINUE TO CLOSELY MONITOR PT. MONITOR PT. 2234- PT HAVING ANOTHER SEIZURE AT THIS TIME. NOTIFIED [facility] HOSPITALIST WHO INSTRUCTED ME TO CALL [facility]. SPOKE W/ [facility] PHYSCIAN WHO RECOMMENDED ADDING ANOTHER ANTI-SEIZURE MED, WHICH HE STATED HE WOULD DO. WHILE ON PHONE W/ [facility] SEIZURE ACTIVITY STOPPED AGAIN. VSS W/ BP 136/40, HR 96 SR AND SPO2 99%. WILL CONTINUE TO CLOSELY MONITOR PT.
[2021-06-12] VITALS (1003 sets, daily range): BP systolic 117–185; BP diastolic 55–139; PULSE 66–149; TEMP 97.5–100.6; O2SAT 47–100
--- NOTE | 2021-06-12 05:06 | NUR ---
FULL SEDATION VACATION NOT PERFORMED AT THIS TIME DUE TO PT'S UNSTABLE CONDITON. WHILE VERSED AND FENTANYL GTTS WERE ON HOLD FOR APPROX. 10 MIN FOR TUBING CHANGE EARLIER IN THE SHIFT, PT BEGAN HAVING A SEIZURE.
[2021-06-12 05:33] LABS: ARTERIAL BLD GAS O2 SATURATION 98.9 % (92-100); ARTERIAL BLD GAS TCO2 CT 19.6; ARTERIAL BLOOD GAS BASE EXCESS -4.2 (-2-2); ARTERIAL BLOOD GAS HCO3 18.8 meq/L (22-26); ARTERIAL BLOOD GAS PCO2 25.9 mmHg (35-45); ARTERIAL BLOOD GAS PO2 117.1 mmHg (80-100); ARTERIAL BLOOD GAS pH 7.48 (7.35-7.45)
--- NOTE | 2021-06-12 05:49 | NUR ---
PT ON SEDATION UNABLE TO WEAN
[2021-06-12 06:02] LABS: MEAN CELL VOLUME 96 fl (80.0-100.0); MEAN CORPUSCULAR HGB CONC 32 g/dl (33.0-37.0); MEAN PLATELET VOLUME 10.8 fl (7.4-10.4); PLATELET COUNT 195 K/mm3 (130-400); RED BLOOD COUNT 2.64 M/mm3 (4.20-5.60); REDCELL DISTRIBUTION WIDTH-CV 20.4 % (11.5-14.5)
[2021-06-12 06:06] LABS: MEAN CORPUSCULAR HEMOGLOBIN 30 pg (27-31)
[2021-06-12 06:07] LABS: HEMATOCRIT 25.3 % (42.0-52.0)
[2021-06-12 06:20] LABS: CALCIUM 8.4 mg/dL (8.4-10.2); CREATININE, serum 0.73 mg/dL (0.72-1.25); POTASSIUM 4.1 mmol/L (3.5-4.5)
[2021-06-12 06:38] LABS: LYMPHOCYTE 5 % (20.0-51.0); NEUTROPHILS 93 % (42.0-75.2); POIKILOCYTOSIS 2+; SCHISTOCYTES 1+; TEAR DROP CELLS 1+
[2021-06-12 06:39] LABS: HYPOCHROMIA 2+
[2021-06-12 06:40] LABS: OVALOCYTES 1+
--- NOTE | 2021-06-12 08:03 | NUR ---
Daughter called for update. Daughter was upset she has not heard anything since Wednesday. This nurse will notify physician to make a call for family update.
--- NOTE | 2021-06-12 10:03 | NUR ---
After DC of Propofol @ 0900- PT has increase in HR in the 140s and blood pressure is trending upwards. physician notified.
--- NOTE | 2021-06-12 12:00 | NUR ---
Called made to referring to increase HR. New orders placed. Will continue to monitor.
--- NOTE | 2021-06-12 14:30 | NUR ---
Sister of PT is bedside. Family member was updated on current status, will reinterating next of KIN makes decisions, as Sister Ramos ask for increase in sedation states. Sister states " Do I have to call and then give the password to get updates". I stated I can tell her his current status, but cannot make changes to care from her suggestions. While leaving the room, Ramos wants to close the sliding glass door, I stated that I would like the door open so I can hear alarms from the vent and pumps. When an alarm goes off the PT sister now steps outside the room stating " its beeping do you hear that". This nurse will continue to monitor PT
--- NOTE | 2021-06-12 14:30 | NUR ---
Pt sister, Nilsa, bedside. PT expressed concerns about the PTs seizure-like activity.This morning Propofol was DC per physician orders. Nilsa stated that she would like the Propofol back on, this nurse stated that " Per doctors orders he wanted it DC, and that I would have to go through Madelyn, next of Kin, to make any plan of care changes". Nilsa did not understand why Madelyn had to be notified of any changes, when she is currently bedside. This nurse stated that " Madelyn is next of kin, and all decisions about medical care has to go through her". Nilsa stated that she is speaking with madelyn through text message and stated that Madelyn did not recieve a call from the physician today. This nurse reassured Nilsa that Dr. Rogers did call Madelyn to update her on status, and I called Dr. Rogers to again comfirm that he did call Madelyn, and he stated that he did. This nurse then proceeded to leave the room, when Nilsa wanted to close the sliding glass doors, I stated that I would like the door to remain open so I can hear the alarms of the pumps, CRM, and Vent. Nilsa then would walk out the door with every alarm, stating " do you hear that". Nilsa appears to be very aggitated.
--- NOTE | 2021-06-12 15:51 | NUR ---
Primary RN & Test Worker requested that this RN talk with sister, Nilsa, at bedside. Introduced self as director of ICU & asked about concerns. Sister stated that she asked primary RN if Propofol could be added back to patient's medications due to continuous shaking/seizure-like activity & that RN responded that she not take recommendations from her & that Madelyn would need to approve. ICU director explained that the patient's daughter, Madelyn, has been very direct in her wishes that she make all decisions & that she is the only family member to receive updates. Discussed [place] law related to legal decision maker in this particular case & that we must follow Madelyn's request. Sister, Nilsa, was not aware of the request from her niece related to information & decisions. Did verbalize that it does put ICU staff in a situation where sharing information about the patient status with family at bedside cannot happen per Madelyn's request. Nilsa stated that Madelyn had not heard from a doctor today & this RN advised that Dr. Rogers did speak with Madelyn during ICU rounds late morning. Nilsa shared what she thought was the discharge plan to [facility] in or [place]; advised that authorization with insurance has been submitted & is pending. Nilsa was initially upset with raised voice, but after explanation of Madelyn's request was calm & understood. ICU Director apologized that information could not be shared per Madelyn's request. Encouraged sister to continue to ask questions & make suggestions, but if a decision needed to be made Madelyn must be contacted. Nilsa express understanding. Support offered & option for family meeting with all 9 siblings, Madelyn & physicians was offered to help with communication barriers; Madelyn refused offer on Wednesday.
--- NOTE | 2021-06-12 17:26 | NUR ---
PT sedation vacation not performed due to constant seizure like activity- myclonic jerks. PT was DC from propofol, with an increas in seizure like movements and heart rate. At this time PT is too unstable to be weaned from sedatives.
--- NOTE | 2021-06-12 18:30 | NUR ---
PT blood sugar 56- Called [facility]e, physician stated that they are at shift change and to go ahead and give half an AMP of d50. 1845- Recheck sugar 91. Will contact physician and notify.
--- NOTE | 2021-06-12 19:34 | NUR ---
1920 - PT'S FSBG 63 AT THIS TIME. PER PROTOCOL D10 STARTED AT 50ML/HR AT 1934. WILL RECHECK BG LEVEL IN 15 MIN.
--- NOTE | 2021-06-12 22:09 | NUR ---
NOTIFIED JESSIE PROCTOR OF PT NOT HAVING A BM DURING THIS ADMISSION AND BOWEL SOUNDS BEING VERY HYPOACTIVE AND PT'S SECRETIONS FROM ET TUBE ARE ALSO BARGER-COLORED SIMILAR TO TUBE FEEDING. NO NEW ORDERS AT THIS TIME. INSTRUCTED TO CONTINUE TO MONITOR PT AND PASS THIS ALONG TO DAY SHIFT IN REPORT.
[2021-06-13] VITALS (918 sets, daily range): BP systolic 108–191; BP diastolic 66–116; PULSE 74–109; TEMP 98.9–100.6; O2SAT 53–100
--- NOTE | 2021-06-13 00:17 | NUR ---
UNABLE TO OBTAIN ACCURATE BP READING AT THIS TIME DUE TO PT'S CONSTANT MYOCLONIC JERKS AND RECURRING SEIZURES.
--- NOTE | 2021-06-13 05:09 | NUR ---
PT TOO UNSTABLE TO PERFORM SEDATION VACATION AT THIS TIME. SINCE D/C OF PROPOFOL ON PREVIOUS SHIFT, PT HAS BEEN HAVING ALMOST CONSTANT MYOCLONIC JERKING AND FREQUENT SEIZURES.
[2021-06-13 06:31] LABS: ARTERIAL BLOOD GAS BASE EXCESS -7.2 (-2-2); ARTERIAL BLOOD GAS HCO3 21.3 meq/L (22-26); ARTERIAL BLOOD GAS PCO2 54.4 mmHg (35-45); ARTERIAL BLOOD GAS PO2 49.5 mmHg (80-100); ARTERIAL BLOOD GAS pH 7.21 (7.35-7.45)
[2021-06-13 06:49] LABS: BASO % 0.1 % (0.0-2.0); EOS # 0.1 K/mm3 (0.0-0.7); EOS % 0.5 % (0.0-4.0); GRAN # 12.1 K/mm3 (1.4-6.5); GRAN % 88.5 % (42.2-75.2); LYMPH # 0.7 K/mm3 (1.2-3.4); LYMPH % 5.4 % (20.0-51.0); MEAN CORPUSCULAR HGB CONC 31 g/dl (33.0-37.0); MONO # 0.7 K/mm3 (0.1-0.6); MONO % 5.1 % (1.7-9.3); PLATELET COUNT 249 K/mm3 (130-400); RED BLOOD COUNT 2.85 M/mm3 (4.20-5.60); REDCELL DISTRIBUTION WIDTH-CV 20.3 % (11.5-14.5)
[2021-06-13 06:50] LABS: HEMATOCRIT 29.1 % (42.0-52.0); HEMOGLOBIN 8.9 g/dl (13.5-18.0); MEAN CELL VOLUME 102 fl (80.0-100.0); MEAN CORPUSCULAR HEMOGLOBIN 31 pg (27-31)
--- NOTE | 2021-06-13 07:00 | NUR ---
Pt still having constant tremors. Unable to get accurate bp and oxygen readings. Pt still on Versed and Fent. Still unable to regulate tempature, Gaymar on Pt and helping regulate temp. Will continue to monitor.
[2021-06-13 07:01] LABS: CALCIUM 8.6 mg/dL (8.4-10.2); CREATININE, serum 0.93 mg/dL (0.72-1.25); POTASSIUM 4.3 mmol/L (3.5-4.5)
--- NOTE | 2021-06-13 07:43 | NUR ---
PT DOES NOT MEET PROPER WEANING REQUIREMENTS
--- NOTE | 2021-06-13 09:28 | NUR ---
BEDSIDE TO EVALUATE PT. STATES HE WILL CALL DAUGHTER HEATHER LATER TODAY FOR UPDATE.
--- NOTE | 2021-06-13 10:18 | NUR ---
BEDSIDE TALKING WITH PT'S SITER IAIN.
--- NOTE | 2021-06-13 13:26 | NUR ---
CALLED AND ASKED TO COME AND EVALUATE PT TODAY, FAMILY WANTS TO CONTINUE CARE.
--- NOTE | 2021-06-13 16:28 | NUR ---
Freight Adjuster contacted Community Care Team and confirmed referral was received. Auth pending at this time.
--- NOTE | 2021-06-13 16:54 | NUR ---
PT'S SISTER IAIN REQUESTING TO TAKE PT'S CLOTHING AND SHOES HOME. THIS RN CALLED AND SPOKE WITH HEATHER BURT'S DAUGHTER AND CONFIRMED OK FOR SISTER IAIN TO TAKE CLOTHING HOME.
--- NOTE | 2021-06-13 17:00 | NUR ---
PT STILL HAVING CONTINOUS TREMORING AND JERKING. UNABLE TO GET ACCURATE BP AND O2 READINGS. NO SEDATION VACATION AT THIS TIME. WILL CONTINUE TO MONITOR.
--- NOTE | 2021-06-13 20:10 | NUR ---
UNABLE TO GET ACCURATE BP AND SPO2 READING AT THIS TIME DUE TO CONSTANT SEIZURE-LIKE ACTIVITY
[2021-06-13 20:49] LABS: ARTERIAL BLD GAS O2 SATURATION 92.1 % (92-100); ARTERIAL BLD GAS TCO2 CT 21.9
[2021-06-14] VITALS (1100 sets, daily range): BP systolic 78–127; BP diastolic 49–72; PULSE 95–118; TEMP 97.8–102.7; O2SAT 51–100
--- NOTE | 2021-06-14 07:12 | NUR ---
RECEIVED BEDSIDE SHIFT REPORT FROM YAEL DELVALLE. PATIENT IS TRACHED AND PEGGED AND SEDATED. ATTEMPTING TO WEAN. PATIENT IS TACHYCARDIC AND SLIGHTLY HYPERTENSIVE BUT STABLE. TRUK CATHETER AND RIGHT UPPER ARM PICC LINE STILL IN PLACE, PATENT. TUBE FEEDING IN PROGRESS. PATIENT STILL CONTINUALLY TREMORING AND UNABLE TO MAINTAIN A DECENT TEMPERATURE. LOW GRADE AT THIS TIME.
--- NOTE | 2021-06-14 09:25 | NUR ---
DR. LAMBERT AT BEDSIDE. DISCUSSED PLAN OF CARE.
[2021-06-14 09:36] LABS: ARTERIAL BLD GAS O2 SATURATION 93.7 % (92-100); ARTERIAL BLD GAS TCO2 CT 19.8; ARTERIAL BLOOD GAS BASE EXCESS -7.5 (-2-2); ARTERIAL BLOOD GAS HCO3 18.6 meq/L (22-26); ARTERIAL BLOOD GAS PCO2 39.6 mmHg (35-45); ARTERIAL BLOOD GAS PO2 68.7 mmHg (80-100); ARTERIAL BLOOD GAS pH 7.29 (7.35-7.45)
[2021-06-14 09:41] LABS: BASO % 0.1 % (0.0-2.0); EOS # 0.1 K/mm3 (0.0-0.7); EOS % 0.4 % (0.0-4.0); GRAN # 12.6 K/mm3 (1.4-6.5); GRAN % 91.2 % (42.2-75.2); LYMPH # 0.5 K/mm3 (1.2-3.4); LYMPH % 3.7 % (20.0-51.0); MEAN CELL VOLUME 100 fl (80.0-100.0); MEAN CORPUSCULAR HGB CONC 31 g/dl (33.0-37.0); MEAN PLATELET VOLUME 10.6 fl (7.4-10.4); MONO # 0.6 K/mm3 (0.1-0.6); MONO % 4.1 % (1.7-9.3); PLATELET COUNT 243 K/mm3 (130-400); REDCELL DISTRIBUTION WIDTH-CV 19.6 % (11.5-14.5)
[2021-06-14 09:47] LABS: HEMATOCRIT 26.9 % (42.0-52.0); HEMOGLOBIN 8.3 g/dl (13.5-18.0); MEAN CORPUSCULAR HEMOGLOBIN 31 pg (27-31)
[2021-06-14 09:57] LABS: CALCIUM 8.5 mg/dL (8.4-10.2); CREATININE, serum 0.76 mg/dL (0.72-1.25); POTASSIUM 3.6 mmol/L (3.5-4.5)
[2021-06-14 10:02] LABS: CALCIUM 8.8 mg/dL (8.4-10.2); CREATININE, serum 0.79 mg/dL (0.72-1.25); POTASSIUM 3.8 mmol/L (3.5-4.5)
--- NOTE | 2021-06-14 10:22 | NUR ---
DR. GRIJALVA AT BEDSIDE. NO CONCERNS AT THIS TIME
--- NOTE | 2021-06-14 12:28 | NUR ---
FAMILY AT BEDSIDE. GIVEN UPDATE ON PATIENT'S STATUS.
--- NOTE | 2021-06-14 17:45 | NUR ---
ZARA AT BEDSIDE ASKING ABOUT COMFORT CARE MEASURES IN PLACE FOR TOMORROW. THIS NURSE STATED THAT HE WOULD HAVE TO TALK TO THE DAUGHTER, HEATHER ABOUT ANY PLAN OF CARE.
--- NOTE | 2021-06-14 20:11 | NUR ---
PM ASSESSMENT COMPLETE. PT WITH NOTED TREMORING, UNRESPONSIVE. PT'S DAUGHTER CALLED, STATED PT'S BROTHER AND WILL BE PRESENT TOMORROW FOR EXTUBATION. DO NOT KNOW SET PLAN FOR THAT EVENT AT THIS TIME.
[2021-06-15] VITALS (519 sets, daily range): BP systolic 96–116; BP diastolic 54–74; PULSE 106–122; TEMP 99.2–100.3; O2SAT 61–100
[2021-06-15 05:50] LABS: ARTERIAL BLD GAS O2 SATURATION 96.3 % (92-100); ARTERIAL BLD GAS TCO2 CT 19.4; ARTERIAL BLOOD GAS BASE EXCESS -6.2 (-2-2); ARTERIAL BLOOD GAS HCO3 18.4 meq/L (22-26); ARTERIAL BLOOD GAS PCO2 33.2 mmHg (35-45); ARTERIAL BLOOD GAS PO2 78.6 mmHg (80-100); ARTERIAL BLOOD GAS pH 7.36 (7.35-7.45)
--- NOTE | 2021-06-15 07:04 | NUR ---
RECEIVED BEDSIDE SHIFT REPORT FROM YAEL GARCIA. PATIENT IS SEDATED, TRACHED AND PEG'D. PATIENT IS UNABLE TO MAINTAIN A STEADY TEMPERATURE; ON WARMING/COOLING BLANKET. TACHYCARDIC AND HYPOTENSIVE BUT OTHERWISE IN STABLE CONDITION. POSSIBILITY OF GOING COMFORT CARE TODAY WITH FAMILY PRESENT. NO CONCERNS OVERNIGHT.
--- NOTE | 2021-06-15 08:17 | NUR ---
CALLED DAUGHTER, HEATHER TO CONFIRM PLAN FOR COMFORT CARE. WANTED TO GET AN ESTIMATED TIME WHEN THE BROTHERZARA WOULD BE ARRIVING. RECEIVED PERMISSION FROM DAUGHTER TO CALL UNCLE AND ASK.
--- NOTE | 2021-06-15 09:41 | NUR ---
CALLED [facility]. THEY HAVE A MTN NUMBER FOR THIS PATIENT AND ARE FOLLOWING WITH HIS CASE. THEY ARE AGREEABLE TO COMPASSIONATE DISCONNECTION FROM THE VENTILATOR AND WILL NEED A CALL BACK ONCE THE PATIENT HAS .
--- NOTE | 2021-06-15 09:44 | NUR ---
DR. LAMBERT AT THE BEDSIDE. DISCUSSED AND CONFIRMED PLAN OF CARE. ON THE PHONE WITH THE DAUGHTER TO CONFIRM WELL.
--- NOTE | 2021-06-15 10:13 | NUR ---
RT WAS CALLED TO BEDSIDE TO PROCEED WITH COMFORT CARE MEASURES. PATIENT WAS REMOVED FROM THE VENTILATOR AT 1008.
--- NOTE | 2021-06-15 11:40 | NUR ---
Spoke with daughter Madelyn Burks regarding arrangements. She stated that I should "talk to her Uncle Benjy, who is here and he will know what home." I visited with Benjy and they have chosen [facility] in [place].
--- NOTE | 2021-06-15 11:53 | NUR ---
COMFORT CARE BEGAN AT 1000. ORDERS WERE RECEIVED. MEDICATIONS WERE GIVEN AT 1005 AND DISCONNECTION FROM THE VENTILATOR WAS PERFORMED AT 1010 WITH RESPIRATORY THERAPIST, HERB. PATIENT AND TIME OF WAS CONFIRMED WITH YAEL ROJO AND DECLARED TIME OF AT 1121. CRIME ANALYST WAS NOTIFIED AT [address] LAMBERT WAS AT BEDSIDE AND NOTIFIED WELL. REGARDS WERE GIVEN TO MAGALIERZARA AT BEDSIDE.
--- NOTE | 2021-06-15 12:07 | NUR ---
MTN notified of patient , not to release body at this time.
--- NOTE | 2021-06-15 12:59 | NUR ---
MTN declined donation, still awaiting to hear from the eye bank.
--- NOTE | 2021-06-15 13:04 | NUR ---
[facility] has released the body at this time.
--- NOTE | 2021-06-15 16:59 | NUR ---
Faceter received notification from Claudia SchwarzCoach Operator, that patient has and family is in process of choosing a home. This social work therapist met with patient brother Benjy ([phone]) who states he has spoken to patent daughter Madelyn Burks/DPOA-HC ([phone]) and the family is choosing [facility] in [place]. This Faceter contacted ([phone]) and left referral information with Ron with the Home's answering service. The director to contact this SW to confirm plan of care. Coach Operator informs patient is not yet released from [facility]. Senior It Project Manager Kailash contacts this Faceter and confirms plan of care, requesting returned call when patient is released. 12:30- Coach Operator informs patient is released. Senior It Project Manager notified, and patient transfer to local home while awaiting relocation to [facility] plan of care is established. Madelyn, patient daughter/DPOA-HC is updated. She expressed gratitude for services offered to patient and family. *Discharge plan: [facility] is coordinating patient transport and services with local home who will arrive to transport patient*
== END 2021-06-15 12:30 | disposition expired | DRG 4 ==
LOC: COL.ER 11:06 → ICU 13:41
PROVIDERS: Family Medicine; Internal Medicine; Internal Medicine Pulmonary Disease; Registered Nurse; Student in an Organized Health Care Education/Training Program; ADMIT Internal Medicine
PROC: 05HY33Z Insertion of Infusion Device into Upper Vein, Percutaneous Approach (ICD-10-PCS; 2021-06-03)
PROC: 5A1955Z Respiratory Ventilation, Greater than 96 Consecutive Hours (ICD-10-PCS; 2021-06-04)
PROC: 02HV33Z Insertion of Infusion Device into Superior Vena Cava, Percutaneous Approach (ICD-10-PCS; 2021-06-09)
PROC: 0DH63UZ Insertion of Feeding Device into Stomach, Percutaneous Approach (ICD-10-PCS; 2021-06-10)
PROC: 0B110F4 Bypass Trachea to Cutaneous with Tracheostomy Device, Open Approach (ICD-10-PCS; principal; 2021-06-10 17:00)
DX: I46.9 Cardiac arrest, cause unspecified (principal); G93.41 Metabolic encephalopathy; I50.21 Acute systolic (congestive) heart failure; J18.9 Pneumonia, unspecified organism; K72.00 Acute and subacute hepatic failure without coma; E87.2 Acidosis; M96.89 Other intraoperative and postprocedural complications and disorders of the musculoskeletal system; G93.1 Anoxic brain damage, not elsewhere classified; J44.0 Chronic obstructive pulmonary disease with (acute) lower respiratory infection; I11.0 Hypertensive heart disease with heart failure; I95.9 Hypotension, unspecified; E16.2 Hypoglycemia, unspecified; D53.9 Nutritional anemia, unspecified; K76.0 Fatty (change of) liver, not elsewhere classified; I27.20 Pulmonary hypertension, unspecified; G47.00 Insomnia, unspecified; E74.39 Other disorders of intestinal carbohydrate absorption; I47.1 Supraventricular tachycardia; I48.92 Unspecified atrial flutter; Z66 Do not resuscitate; G25.3 Myoclonus; E87.5 Hyperkalemia; Y84.8 Other medical procedures as the cause of abnormal reaction of the patient, or of later complication, without mention of misadventure at the time of the procedure; Z51.5 Encounter for palliative care
CPT/HCPCS: 99223-AI; 99233-AI; 99239; A7521; C1751; C9113; C9254; J0171; J0360; J0713; J1940; J1953; J2060; J2250; J2405; J2543; J2704; J2920; J2930; J3010; J3370; J3475; J3480; J7030; J7050; J7060; J7070; J7120; Q2009; Q9967